=== PATIENT | male | born 1965 | race Caucasian/White ===

== ENCOUNTER 2023-10-30 23:45 | Emergency (ER) | payer MEDICAID, SELFPAY ==
--- NOTE | ~2023-10-30 | CT_ITS ---
EXAMINATION: CT cervical spine wo IV con, CT head/brain wo IV con INDICATION INFORMATION: Reason for Exam fall, neck pain COMPARISON: None TECHNIQUE: Separate noncontrast CT examinations of the head and cervical spine were performed. Coronal and sagittal images were created for each examination at the technologist workstation. This CT examination was performed using dose optimization techniques as appropriate, variously including the following: *Automated exposure control *Adjustment of mA and/or kV according to patient size (this includes techniques or standardized protocols for targeted exams where dose is matched to indication/reason for exam; i.e. extremities or head) *Use of iterative reconstruction technique DLP: 922 mGy-cm FINDINGS: Head: No acute osseous or soft tissue abnormality. Near complete bilateral mastoid and middle ear opacification. The visualized paranasal sinuses are clear. There is no evidence of acute intracranial hemorrhage or territorial infarction. No abnormal mass effect or midline shift is seen. Chappell to white matter differentiation is well preserved. No extra-axial fluid collections are identified. No hydrocephalus. No significant volume loss. Patchy periventricular and deep white matter hypoattenuation is consistent with mild small vessel ischemic changes. Cervical spine: There is no evidence of acute cervical spine fracture. Vertebral bodies remain normal in height. Alignment is maintained. Multilevel loss of disc space height. No pre- or paravertebral soft tissue abnormality is identified. Visualized portions of the lung apices are unremarkable. The thyroid gland is unremarkable. CT/CT cervical spine wo IV con IMPRESSION: 1. No acute intracranial abnormality. 2. Near-complete opacification of the bilateral mastoid and middle ear cavities. 3. No cervical spine fracture or traumatic malalignment.
--- NOTE | ~2023-10-30 | CT_ITS ---
EXAMINATION: CT ANGIOGRAM OF THE CHEST WITH AND WITHOUT CONTRAST (CT PULMONARY ANGIOGRAM FOR PE) CLINICAL INFORMATION: Reason for Exam syncope, elevated dimer COMPARISON: None available. TECHNIQUE: Prior to contrast administration, noncontrast localization images were obtained. Subsequently, multidetector volumetric imaging was performed from the thoracic inlet to below the diaphragms following the administration of 65 mL Omnipaque 350 intravenous contrast. No contrast reaction reported Sagittal, coronal, and MIP oblique sagittal reformatted images were obtained on the CT workstation, uploaded to PACS, and reviewed. This CT examination was performed using dose optimization techniques as appropriate, variously including the following: *Automated exposure control *Adjustment of mA and/or kV according to patient size (this includes techniques or standardized protocols for targeted exams where dose is matched to indication/reason for exam; i.e. extremities or head) *Use of iterative reconstruction technique Total exam dose-length product 248 mGy-cm FINDINGS: QUALITY OF STUDY/CONTRAST BOLUS: Satisfactory. PULMONARY ARTERIES: No pulmonary emboli. THORACIC AORTA: There is mild atherosclerotic plaque of the aortic arch and descending thoracic aorta. LUNG: No focal consolidation, nodules or masses. PLEURA: No pleural effusion or pneumothorax. MEDIASTINUM: Normal heart size. No pericardial effusion. No hilar or mediastinal lymphadenopathy. No evidence of septal bowing or right heart strain. CORONARY ARTERY CALCIFICATION: None visualized on this study. CHEST WALL/AXILLA: No axillary or internal mammary lymphadenopathy. OSSEOUS STRUCTURES: No acute or suspicious osseous abnormality. UPPER ABDOMEN: The pancreatic duct stent in place. There is intrahepatic biliary air. No reflux of contrast into the hepatic veins to suggest elevated right heart pressures. CT/CT angio chest PE protocol IMPRESSION: 1. No evidence of pulmonary embolism. 2. No acute pulmonary disease. 3. Pancreatic duct stent in place. There is intrahepatic biliary air. VTE: negative.
[2023-10-30 23:53] VITALS: BP 104/59; BP 85/47; PULSE 105; PULSE 98; RESP 12; TEMP 36.6; O2SAT 97; O2SAT 99; BMI 25.2
--- NOTE | 2023-10-30 23:59 | ECG_ITS ---
Test Reason : SYNCOPEE Blood Pressure : / mmHG Vent. Rate : 094 BPM Atrial Rate : 094 BPM P-R Int : 162 ms QRS Dur : 082 ms QT Int : 338 ms P-R-T Axes : 074 042 064 degrees QTc Int : 422 ms Normal sinus rhythm Normal ECG No previous ECGs available Referred By: Generic ED Physician Electronically Signed By:CHERY DIXON MD
[2023-10-31 00:05] VITALS: BP 104/59; PULSE 92; PULSE 98; RESP 12; TEMP 36.6; O2SAT 96; O2SAT 98
[2023-10-31 00:19] LABS: MANUAL DIFF FLAG NO
[2023-10-31 00:21] LABS: Basophils Absolute Auto 0.1 X10*3/uL (0.0-0.2); Basophils Percent Auto 0.5 % (0-2); Eosinophils Absolute Auto 0.1 X10*3/uL (0.0-0.4); Eosinophils Percent Auto 1.4 % (0-4); Hematocrit 30.2 % (42.0-52.0); Hemoglobin 10.4 g/dl (14.0-18.0); Imm Gran Abs Auto 0.09 X10*3/uL (0.00-0.03); Imm Gran Pct Auto 0.9 % (0.0-0.4); Lymphocytes Absolute Auto 2.7 X10*3/uL (1.2-4.9); Lymphocytes Percent Auto 26.1 % (20-40); Mean Corpuscular HGB Conc 34.4 g/dl (31.0-36.0); Mean Corpuscular Hemoglobin 30.7 pg (27.0-33.0); Mean Corpuscular Volume 89.1 fL (80.0-98.0); Mean Platelet Volume 8.9 fL (9.4-12.4); Monocytes Absolute Auto 0.7 X10*3/uL (0.1-1.2); Monocytes Percent Auto 7.1 % (2-11); Neutrophils Absolute Auto 6.6 x10*3/uL (2.0-8.3); Platelet Count 657 X10*3/uL (160-400); Red Blood Count 3.39 X10*6/uL (4.60-5.80); White Blood Count 10.3 X10*3/uL (4.8-10.8)
[2023-10-31 00:42] LABS: Troponin-I High Sensitivity 8.7 ng/L (<3.5-35.0)
[2023-10-31 00:45] LABS: Alanine Aminotransferase 25 U/L (0-40); Albumin Level 3.1 g/dL (3.5-5.0); Alkaline Phosphatase 93 U/L (39-117); Anion Gap 15 (12-20); Aspartate Amino Transferase 26 U/L (5-37); Bilirubin Direct < 0.2 mg/dL (0.0-0.5); Bilirubin Total 0.1 mg/dL (0.0-1.0); Blood Urea Nitrogen 18 mg/dL (9-16); Calcium 9.4 mg/dL (8.4-10.2); Carbon Dioxide 27 mmol/L (22-29); Chloride 102 mmol/L (96-108); Creatinine Clr Calc Pharmacy 88.7; Estimated Glomerular Filt Rate > 60; Glucose Random 178 mg/dL (60-115); Lipase 20 U/L (8-78); Potassium 4.5 mmol/L (3.3-5.1); Sodium 139 mmol/L (135-145); Total Protein 6.6 g/dL (6.5-8.0)
[2023-10-31 00:50] VITALS: BP 107/61; BP 114/58; PULSE 80; PULSE 83
[2023-10-31 00:53] VITALS: BP 101/56; PULSE 105
[2023-10-31] MEDS: 0.9 % Sodium Chloride 1,000 ML 999 ML IVCONT (01:06)
[2023-10-31] MEDS: Ketorolac Tromethamine 30 MG/ML VIAL IVPUSH (01:06)
[2023-10-31] MEDS: ondansetron HCL 4 MG/2 ML VIAL IVPUSH (01:06)
[2023-10-31 01:22] VITALS: BP 119/58; PULSE 79; RESP 10; TEMP 36.8; O2SAT 97
[2023-10-31 01:43] LABS: D Dimer High Sensitivity 491 NG/ML
--- NOTE | 2023-10-31 02:14 | ED.GENADULT ---
HPI - General Adult General Chief complaint: Syncope Stated complaint: hypotensive and syncope Time Seen by Provider: 10/31/23 00:37 Source: patient and EMS Mode of arrival: EMS Limitations: no limitations History of Present Illness HPI narrative: Patient comes to the emergency room complaining of a syncopal episode. Patient states that he is on Stephanie [place], patient was standing up from a sitting position and patient passed out. Patient states that he has a bit of neck pain from the fall. Patient is not on blood thinners. According to EMS, patient's initial blood pressure was 85/47. Also, patient complaining of chronic abdominal pain, patient known to have chronic pancreatitis. Patient denies SI or HI. Related Data Allergies Allergy/AdvReac Type Severity Reaction Status Date / Time bee venom protein (honey bee) Allergy Anaphylaxis Verified 10/30/23 23:59 citalopram [From Celexa] AdvReac Confusion Verified 10/30/23 23:58 Review of Systems Review of Systems: Constitutional : No Weight loss, No Fever, No Chills, No Night Sweats, No Fatigue, No Malaise ENT/Mouth : No Hearing loss, No Ear Pain, No Nasal Congestion, No Sinus Pain, No Hoarseness, No sore throat, No Rhinorrhea, No Swallowing Difficulty Eyes: No Eye Pain, No Swelling, No Redness, No Foreign Body, No Discharge, No Vision Changes Cardiovascular : No Chest Pain, No SOB, No Dyspnea on Exertion, No Orthopnea, No Edema, No Palpitations Respiratory : No Cough, No Sputum, No Wheezing, No Smoke Exposure, No Dyspnea Gastrointestinal : No Nausea, No Vomiting, No Diarrhea, No Constipation, No abdominal Pain, No Hematochezia, No Melena Genitourinary : no irregular bleeding, No Dysuria, No Urinary Frequency, No Hematuria, No Urinary Incontinence, No Urgency, No Flank Pain, No Urinary Flow Changes, No Hesitancy Musculoskeletal : No joint pain, No Myalgias, No Joint Swelling Skin : No Skin Lesions, No rash Neuro : No Weakness, No Numbness, No Paresthesias, bleeding of 1 episode of loss of consciousness, No Dizziness, No Headache Psych : No Anxiety/Panic, No Depression, No SI/HI/AH/VH, No Social Issues, Heme/Lymph: No Bruising, No Bleeding,No Lymphadenopathy Endocrine : No Polyuria, No Polydipsia, No Temperature Intolerance PMFSH Past Medical History Medical History (Updated 10/31/23 @ 02:26 by Lula Franco MD) Chronic pancreatitis Social History Social History Alcohol intake: former Smoked in Last 30 Days: No Use of substances other than those prescribed or required for medical reasons: No Advance Directives: No Advance Directives Information Provided: Yes Physical Exam ED Vital Signs: Vital Signs - 24 hr 10/30/23 23:53 10/31/23 00:05 10/31/23 00:05 Temperature 97.9 F 97.9 F Pulse Rate 98 98 Respiratory Rate 12 12 Blood Pressure 104/59 L 104/59 L Pulse Oximetry 97 98 96 Oxygen Delivery Method Room Air Room Air Room Air 10/31/23 00:50 10/31/23 00:50 10/31/23 00:53 Temperature Pulse Rate 80 83 105 H Respiratory Rate Blood Pressure 114/58 L 107/61 101/56 L Pulse Oximetry Oxygen Delivery Method 10/31/23 01:22 Temperature 98.2 F Pulse Rate 79 Respiratory Rate 10 L Blood Pressure 119/58 L Pulse Oximetry 97 Oxygen Delivery Method Room Air BMI result Body Mass Index 25.2 Const Other: Appearance: Alert. Oriented X3. No acute distress. Eyes: Pupils equal, round and reactive to light. ENT: Pharynx normal. Neck: Normal inspection. Neck supple. No lymph nodes noted. No crepitus CVS: Normal heart rate and rhythm. Pulses normal. Normal S1 and S2 Respiratory: No respiratory distress. Breath sounds normal. No Wheezing. No rales Abdomen: Soft and nontender. No rigidity. No distention. Skin: Skin warm and dry. Normal skin color. Normal skin turgor. Extremities: No lower extremity edema. No Lacerations. No Rash Neuro: Oriented X 3. No motor deficit. No sensory deficit. Moving all extremities. No slurred speech. CN 2 through 12 grossly intact Psych: calm, cooperative, normal affect Medications Administered Discontinued Medications Generic Name Dose Route Start Last Admin Trade Name Freq PRN Reason Stop Dose Admin Sodium Chloride 1,000 mls @ 999 mls/hr 10/31/23 00:48 10/31/23 01:06 Ns IVCONT 10/31/23 01:48 999 mls/hr .Q1H1M ONE Administration Ketorolac Tromethamine 30 mg 10/31/23 00:48 10/31/23 01:06 Ketorolac Tromethamine 30 Mg/Ml Vial IVPUSH 10/31/23 00:49 30 mg ONCE ONE Administration Ondansetron HCl 4 mg 10/31/23 00:48 10/31/23 01:06 Ondansetron Hcl 4 Mg/2 Ml Vial IVPUSH 10/31/23 00:49 4 mg ONCE ONE Administration Medical Decision Making Medical Decision Making [facility] Narrative: -My interpretation of head CT of the head: No intracranial bleed, cervical C-spine: No obvious fracture -my interpretation of labs: Patient is a bit anemic, hemoglobin 10.4, patient denies black stool. Chemistry within normal limits, troponin negative, lipase negative. Patient's D-dimer is positive, 497. -my interpretation of EKG: Normal sinus rhythm, heart rate 94, no ST segment depression or elevation, no T-wave inversion, QTC 422 -patient is getting a CT scan to rule out pulmonary embolism. Orthostatic vitals negative Sign-out given to my colleague Dr. Willard, CT pending, please recheck orthostatic vitals - Differential Diagnosis Differential Diagnoses: The differential diagnosis associated with the presentation includes (Psych hypotension, vasovagal syncope, PE) Admission/Observation Consideration of admission/observation: Escalation of care including admission/observation considered (Given patient's presentation and history, admission was considered) Lab Data [facility] Lab Attestation statement: I reviewed the patient's lab results. 10/31/23 00:12 10/31/23 00:12 Labs: Lab Results 10/31/23 10/31/23 10/31/23 Range/Units 00:12 00:13 01:22 WBC 10.3 (4.8-10.8) X10*3/uL RBC 3.39 L (4.60-5.80) X10*6/uL Hgb 10.4 L (14.0-18.0) g/dl Hct 30.2 L (42.0-52.0) % MCV 89.1 (80.0-98.0) fL MCH 30.7 (27.0-33.0) pg MCHC 34.4 (31.0-36.0) g/dl RDW 14.0 (11.0-16.0) % Plt Count 657 H (160-400) X10*3/uL MPV 8.9 L (9.4-12.4) fL Immature Gran % (Auto) 0.9 H (0.0-0.4) % Neut % (Auto) 64.0 (45-73) % Lymph % (Auto) 26.1 (20-40) % [facility] % (Auto) 7.1 (2-11) % Eos % (Auto) 1.4 (0-4) % Baso % (Auto) 0.5 (0-2) % Lymph # (Auto) 2.7 (1.2-4.9) X10*3/uL [facility] # (Auto) 0.7 (0.1-1.2) X10*3/uL Eos # (Auto) 0.1 (0.0-0.4) X10*3/uL Baso # (Auto) 0.1 (0.0-0.2) X10*3/uL Abs Immat Gran (auto) 0.09 H (0.00-0.03) X10*3/uL Absolute Neuts (auto) 6.6 (2.0-8.3) x10*3/uL Absolute Nucleated RBC 0.000 (0.0-0.012) X10*3/uL Nucleated RBC % (auto) 0.0 (0.0-0.2) /100WBC D-Dimer High Sensitivty 491 NG/ML Sodium 139 (135-145) mmol/L Potassium 4.5 (3.3-5.1) mmol/L Chloride 102 (96-108) mmol/L Carbon Dioxide 27 (22-29) mmol/L Anion Gap 15 (12-20) BUN 18 H (9-16) mg/dL Creatinine 0.78 (0.5-1.4) mg/dL Estim Creat Clear Calc 88.7 Estimated GFR > 60 Random Glucose 178 H (60-115) mg/dL Calcium 9.4 (8.4-10.2) mg/dL Total Bilirubin 0.1 (0.0-1.0) mg/dL Direct Bilirubin < 0.2 (0.0-0.5) mg/dL AST 26 (5-37) U/L ALT 25 (0-40) U/L Alkaline Phosphatase 93 (39-117) U/L Troponin I High Sens 8.7 (<3.5-35.0) ng/L Total Protein 6.6 (6.5-8.0) g/dL Albumin 3.1 L (3.5-5.0) g/dL Lipase 20 (8-78) U/L Independent Interpretation I performed an independent interpretation of an: CT Scan Radiology Impression Discussion of test interpretation with radiology: I have reviewed the radiologist's reading. Radiologist Impression: Head: No acute osseous or soft tissue abnormality. Near complete bilateral mastoid and middle ear opacification. The visualized paranasal sinuses are clear. There is no evidence of acute intracranial hemorrhage or territorial infarction. No abnormal mass effect or midline shift is seen. Chappell to white matter differentiation is well preserved. No extra-axial fluid collections are identified. No hydrocephalus. No significant volume loss. Patchy periventricular and deep white matter hypoattenuation is consistent with mild small vessel ischemic changes. Cervical spine: There is no evidence of acute cervical spine fracture. Vertebral bodies remain normal in height. Alignment is maintained. Multilevel loss of disc space height. No pre- or paravertebral soft tissue abnormality is identified. Visualized portions of the lung apices are unremarkable. The thyroid gland is unremarkable. CT/CT head/brain wo IV con IMPRESSION: 1. No acute intracranial abnormality. 2. Near-complete opacification of the bilateral mastoid and middle ear cavities. 3. No cervical spine fracture or traumatic malalignment. Critical Care Time Critical Care Time Critical Care Time: Yes Total Critical Care Time: 45 Attestation: I have personally provided critical care time. Time includes review of lab data, radiology results, discussion with consultants, and monitoring for potential decompensation. Intervention performed as documented. Discharge Plan Discharge Clinical Impression: Syncope Patient Disposition: Still a Patient
[2023-10-31] MEDS: iohexoL 350 MG/ML 100 ML INFUS..BTL 65 ML IV (02:41)
[2023-10-31 04:13] VITALS: BP 124/62; PULSE 78; RESP 12; TEMP 36.7; O2SAT 96
--- NOTE | 2023-10-31 04:58 | PC.NURSE ---
this rn assumed care of pt @ [id number]. pt up for discharge report given to ems prior to transfer rn to rn report given to data warehouse consultant Alyssa RAJPUT. bilateral ivs removed prior to discharge. pt verbalized [ain at discharge asking for dilaudid dr snyder made aware. denies to place pain medication order prior to discharge
== END 2023-10-31 05:02 | disposition home or self-care (01) ==
PROVIDERS: Emergency Provider Emergency Medicine
DX: R55 Syncope and collapse (principal); M54.2 Cervicalgia; R10.30 Lower abdominal pain, unspecified; R51.9 Headache, unspecified; Z79.899 Other long term (current) drug therapy
CPT/HCPCS: 36415; 70450; 71275; 72125; 80053; 82248; 83690; 84484; 85025; 85379; 93005; 96374; 96375; 99284; 99285; J1885; J2405; Q9967

== ENCOUNTER → 2023-10-30 23:59 | Outpatient (BNV) | payer MEDICAID, SELFPAY | PROVIDERS: Emergency Provider Emergency Medicine; Visit Provider Internal Medicine Cardiovascular Disease | DX: R55 Syncope and collapse (principal) | CPT/HCPCS: 93010 ==